=== PATIENT | male | born 1955 | race Caucasian/White ===

== ENCOUNTER → 2021-03-08 09:05 | Outpatient (BNVA) | payer MEDICARE, BC, SELFPAY | PROVIDERS: PCP Family Medicine; Visit Provider Urology | DX: Z12.5 Encounter for screening for malignant neoplasm of prostate (principal); R39.9 Unspecified symptoms and signs involving the genitourinary system; Z80.42 Family history of malignant neoplasm of prostate | CPT/HCPCS: 81003; G0103 ==

== ENCOUNTER → 2022-11-21 13:16 | Outpatient (BNVA) | payer MEDICARE, BC, SELFPAY | PROVIDERS: PCP Family Medicine; Visit Provider Otolaryngology | DX: C44.90 Unspecified malignant neoplasm of skin, unspecified (principal) | CPT/HCPCS: 99204 ==

== ENCOUNTER → 2022-11-28 11:07 | Outpatient (BNVA) | payer MEDICARE, BC, SELFPAY | PROVIDERS: PCP Family Medicine; Referring Provider Family Medicine; Visit Provider Student in an Organized Health Care Education/Training Program | DX: M17.12 Unilateral primary osteoarthritis, left knee (principal) | CPT/HCPCS: 73560; 73565; 99204 ==

== ENCOUNTER 2022-12-15 10:24 | Day surgery (SDC) | payer MEDICARE, BC, SELFPAY ==
[2022-12-14 09:21] VITALS: BMI 30.8
[2022-12-15 10:43] VITALS: BP 147/90; PULSE 64; RESP 16; TEMP 36.2; O2SAT 97
[2022-12-15] MEDS: sodium chloride 0.9% 1,000 ML 30 ML IV (11:12)
--- NOTE | 2022-12-15 13:01 | P.HPUD_ITS ---
Surgery/Procedure H&P Update DATE OF PROCEDURE: December 15, 2022 DATE H&P PERFORMED: 11/21/22 H&P UPDATE INFORMATION: I have reviewed H&P completed within last 30 days, I have examined patient prior to procedure and No changes to prior documentation CHANGES TO PREVIOUS DOCUMENTATION: No changes PREOP DIAGNOSIS: Right episcopalian skin malignancy PRIMARY INDICATION FOR PROCEDURE: Right episcopalian skin lesion PLANNED PROCEDURE: Operation Date: 12/15/22 12:00 Proposed Procedures p 97484 - excision of lesion of face R episcopalian C44.90(Right) - Ismael Hernandez MD
--- NOTE | 2022-12-15 13:01 | W.PM.OPSUD ---
Surgery/Procedure H&P Update DATE OF PROCEDURE: December 15, 2022 DATE H&P PERFORMED: 11/21/22 H&P UPDATE INFORMATION: I have reviewed H&P completed within last 30 days, I have examined patient prior to procedure and No changes to prior documentation CHANGES TO PREVIOUS DOCUMENTATION: No changes PREOP DIAGNOSIS: Right uatsdin skin malignancy PRIMARY INDICATION FOR PROCEDURE: Right uatsdin skin lesion PLANNED PROCEDURE: Operation Date: 12/15/22 12:00 Proposed Procedures p [id number] - excision of lesion of face R uatsdin C44.90(Right) - Ismael Hernandez MD
[2022-12-15] MEDS: ceFAZolin 2,000 MG in sodium chloride 0.9% (plus) 50 ML 100 MG IV (13:10)
--- NOTE | 2022-12-15 13:42 | P.ANESASSM_ITS ---
Pre-Anesthetic Assessment Height/Weight: Height 1.78 m Weight 97.522 kg Temp Pulse Resp BP Pulse Ox O2 Del Method 97.1 F L 64 16 147/90 97 Room Air 12/15/22 10:43 12/15/22 10:43 12/15/22 10:43 12/15/22 10:43 12/15/22 10:43 12/15/22 10:46 Preop Diagnosis: Right taoism skin malignancy Operation Date: 12/15/22 12:00 Proposed Procedures p [id number] - excision of lesion of face R taoism C44.90(Right) - Ismael Hernandez MD Familial anesthetic complications: none Was Beta Cy taken within 24 hours: N/A Was Clonidine taken within 24 hours: N/A Last intake: Intake Last Liquid Date 12/15/22 Last Liquid Time 06:30 Last Solid Date 12/15/22 Last Solid Time 03:00 Social No alcohol and No tobacco Exam alert, oriented x 3, clear to auscultation bilaterally and regular rate & rhythm Airway Submandibular: within normal limits Cervical ROM: within normal limits Mallampati: Class I Dentition: caps Comments: Comments: Pt. describes having teeth knocked out during intubation, I'm anterior . CV/HEM Hypertension Musc/skel Osteoarthritis/DJD Anesthetic Plan ASA status: 2 Anesthesia: Choice Medications/Allergies Home Medications Medication Instructions Recorded Confirmed Last Taken Type aspirin 81 mg tablet,delayed 81 mg PO DAILY 09/10/19 12/14/22 11/24/22 History release (Adult Low Dose Aspirin) lisinopril 40 mg tablet 40 mg PO DAILY 09/10/19 12/14/22 12/14/22 History chlorthalidone 25 mg tablet 25 mg PO DAILY 03/08/21 12/14/22 12/14/22 History Allergies Allergy/AdvReac Type Severity Reaction Status Date / Time No Known Allergies Allergy Verified 11/28/22 11:27 Current Medications Generic Name Dose Route Start Last Admin Trade Name Freq PRN Reason Stop Dose Admin Sodium Chloride 1,000 mls @ 30 mls/hr 12/15/22 10:45 12/15/22 11:12 Sodium Chloride 0.9% IV 12/16/22 10:44 30 mls/hr .Q24H JOSE Administration PFSH Anesthesia Medical History DVT (deep venous thrombosis) Family history of prostate cancer HTN (hypertension) Varicose veins of both lower extremities Surgical History S/P IVC filter S/P knee surgery S/P shoulder surgery S/P tendon repair Family History Mother Hypertension Father , at age 83 COPD (chronic obstructive pulmonary disease) Social History Smoking and tobacco status: never smoked Alcohol intake: never Marital status: Current occupational status: retired Data Anesthesia Cardiac Studies: No Data to Display
[2022-12-15] MEDS: neomycin-poly-bacitracin oint 28 gm 1 APPLIC TOPICAL (13:49)
[2022-12-15] MEDS: lidocaine-epi 2% 1.7mL Cartridge (OR Only) 5.1 ML XX (13:51)
--- NOTE | 2022-12-15 14:12 | P.OP_ITS ---
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 3 cm. Implants: No implants Specimens removed/disposition: Lesion with surrounding skin Pathology: Same Surgeon: Ismael Hernandez MD Anesthesia: General and Local Estimated blood loss: 10 mL Complications: No complications encountered Findings: Ulcerative lesion with raised edges and quiescent phase right zoroastrian skin. Lesion measuring 8 mm in diameter. Excision was 3 cm x 1.5 cm to obtain margins that were clear. Brief History: 67-year-old male patient with a right zoroastrian skin lesion that ulcerated and bled and scabbed over. Its been enlarging in size. On exam it appeared to be a basal cell carcinoma. He is being brought to the operating room at this time to undergo excision and repair. Frozen section will be utilized for margins. The procedure its risks and complications were explained in detail. Risks include bleeding infection numbness scarring swelling bruising weakness of facial nerve which could be temporary or permanent and anesthetic risks. With these things understood informed consent was granted and witnessed. Procedure: Description of procedure: The patient was placed on the operating table in the supine position. Adequate general LMA anesthesia was obtained. The patient was positioned into a semirecumbent position. The sign the site was noted. Alcohol was used to remove the signature and cleansed the skin and prep it for infiltration of local. A total of 5.1 mL of 2% Xylocaine with 1-100,000 epinephrine was used in a field block pattern. Patient was then prepped and draped in usual fashion. A timeout was accomplished identifying the patient date of plan procedure allergies fire risk and medications given. With all in agreement the procedure continued. A fusiform excision pattern was outlined with the apices superiorly and inferiorly. The incision was created with a 15 blade carrying it down to the level of the subcutaneous fat. In this plane the lesion was excised. It was marked superiorly with suture. Hemostasis was then obtained with bipolar cautery. Frozen section returned as basal cell carcinoma with margins clear. After assuring that there was no active bleeding the subcutaneous layer was closed with interrupted 4-0 chromic suture. The skin was closed with a running subcuticular 5-0 nylon. The area was cleansed. Pressure was applied for about 5 minutes. Neosporin ointment was applied. A large sterile Band-Aid was placed over the incision. Patient was then returned to anesthesia for wake-up and extubation. Patient tolerated the procedure well had an estimated blood loss of 10 mL and arrived in recovery in stable condition.
[2022-12-15 14:20] VITALS: BP 123/77; PULSE 63; RESP 18; TEMP 36.1; O2SAT 99
[2022-12-15 14:25] VITALS: BP 131/83; PULSE 66; RESP 18; O2SAT 98
[2022-12-15 14:30] VITALS: BP 123/78; PULSE 74; RESP 18; O2SAT 99
[2022-12-15 14:35] VITALS: BP 127/76; PULSE 69; RESP 16; TEMP 36.2; O2SAT 92
[2022-12-15 14:46] VITALS: BP 111/71; PULSE 74; RESP 14; TEMP 36.3; O2SAT 95
--- NOTE | 2022-12-15 15:21 | ANE.PACU2 ---
Inpatient post-anesthesia follow up: Airway intact: Yes Vital signs: Temperature 97.4 F Pulse Rate 74 Respiratory Rate 14 Blood Pressure 111/71 Pulse Oximetry 95 Oxygen Delivery Me thod Room Air Oxygen Flow Rate 6 Fraction of Inspir ed Oxygen Hydration adequate: Yes Nausea and vomiting: No Pain level: 2 Mental status: Baseline
== END 2022-12-15 15:30 | disposition home or self-care (01) ==
PROVIDERS: PCP Family Medicine; Visit Provider Otolaryngology
PROC: (CPT 11643; principal; 2022-12-15 11:50)
DX: C44.319 Basal cell carcinoma of skin of other parts of face (principal); I10 Essential (primary) hypertension; Z79.82 Long term (current) use of aspirin; Z86.718 Personal history of other venous thrombosis and embolism
CPT/HCPCS: 11643; 12052; 88304; 88331; A4216; J0690; J2250; J2405; J2704; J2710; J3010; J3490; J7030

== ENCOUNTER → 2022-12-23 11:22 | Outpatient (BNVA) | payer MEDICARE, BC, SELFPAY | PROVIDERS: PCP Family Medicine; Visit Provider Otolaryngology | DX: Z48.817 Encounter for surgical aftercare following surgery on the skin and subcutaneous tissue (principal) | CPT/HCPCS: 99024 ==

== ENCOUNTER 2022-12-24 10:51 | Outpatient (CLI) | payer MEDICARE, BC, SELFPAY ==
--- NOTE | 2022-12-24 14:30 | CT_ITS ---
WS: [id number] CT LEFT KNEE, NONCONTRAST TECHNIQUE: Noncontrast CT of the LEFT knee to include the LEFT hip and ankle. CLINICAL INFORMATION: M17.12 - Unilateral primary osteoarthritis, left knee COMPARISON: None. DLP: 861.[address] scans at [facility] use at least one of these dose optimization techniques: automated e xposure control; mA and/or kV adjustment per patient size (includes targeted exams where dose is matc hed to clinical indication); or iterative reconstruction. FINDINGS: Advanced degenerative arthritis LEFT knee worse in the medial joint compartment with pimp-om-soru art iculation. Hypertrophic patella. Small suprapatellar effusion. Soft tissue edema. Lobulated popliteal cyst measuring 5.3 x 2.8 cm. Vascular calcification. Small fat-containing inguinal hernias. Prominent prostate with calcification. Small cystocele. Partia lly visualized ileal sclerosis along the SI joints. CT/CT knee LT wo con* [id number] IMPRESSION: Images obtained for preoperative purposes.
== END 2022-12-24 10:52 | disposition home or self-care (01) ==
LOC: RAD 10:53
PROVIDERS: PCP Family Medicine; Visit Provider Student in an Organized Health Care Education/Training Program
DX: M17.12 Unilateral primary osteoarthritis, left knee (principal)
CPT/HCPCS: 73700

== ENCOUNTER 2023-01-04 07:50 | Day surgery (SDC) | payer MEDICARE, BC, SELFPAY ==
[2023-01-03 09:05] VITALS: BMI 31.5
[2023-01-03 10:18] LABS: Add Urine Microscopic? NO; Charge for UA Resulting for Rev
[2023-01-03 10:19] LABS: Basophils # 0.1 10^3/uL (0.0-0.1); Basophils % 0.8 %; Eosinophils # 0.3 10^3/uL (0.0-0.8); Eosinophils % 4.6 %; Hematocrit 47.9 % (42.0-52.0); Hemoglobin 16.1 g/dL (11.7-16.6); Lymphocytes # 1.8 10^3/uL (0.8-4.8); Mean Corpuscular HGB Conc 33.6 g/dL (30.0-36.0); Mean Corpuscular Hemoglobin 29.8 pg (28.0-34.0); Mean Corpuscular Volume 88.5 fl (80-94); Mean Platelet Volume 9.8 fL (7.4-10.4); Monocytes # 0.8 10^3/uL (0.2-0.9); Monocytes % 12.7 %; Neutrophils # 3.42 10^3/uL (1.8-7.7); Neutrophils % 53.7 %; Nucleated Red Blood Cells % 0 %; Platelet Count 157 10^3/cmm (130-400); Red Blood Count 5.41 10^6/uL (4.1-5.3); Red Cell Distribution Width 12.9 % (12.1-15.1); White Blood Count 6.4 10^3/uL (4.0-10.0)
[2023-01-03 10:23] LABS: Bilirubin Urine Neg (Negative); Blood Urine Neg (Negative); Glucose Urine UA Norm (Normal); Ketones Urine Negative (Negative); Leukocyte Esterase Urine Negative (Negative); Nitrate Urine Negative (Negative); Protein Urine Neg (Negative); Urine Appearance Clear (CLEAR); Urine Color Yellow (Yellow); Urobilinogen Urine Neg (Negative); pH Urine 6 (5-7)
--- NOTE | 2023-01-03 10:39 | P.ANESASSM_ITS ---
Pre-Anesthetic Assessment Height/Weight: Height 1.78 m Weight 99.79 kg Operation Date: 01/04/23 13:30 Proposed Procedures p Left total knee arthroplasty: 11403,M17.12(Left) - Jhony Choudhury DO Familial anesthetic complications: Difficult airway - was told he was anterior and if they'd had a flexible, it would've been easier. During this intubation attempt he experienced chipping of teeth. Social No alcohol and No tobacco Exam alert, oriented x 3, clear to auscultation bilaterally and regular rate & rhythm Airway Mallampati: Class II Dentition: caps Pulmonary Sleep Apnea Anesthetic Plan ASA status: 2 Anesthesia: Regional (specify below) Risk of > 500 ml blood loss (7ml/kg in children): Yes, adequate IV access and fluids planned Medications/Allergies Home Medications Medication Instructions Recorded Confirmed Last Taken Type aspirin 81 mg tablet,delayed 81 mg PO DAILY 09/10/19 01/03/23 11/24/22 History release (Adult Low Dose Aspirin) lisinopril 40 mg tablet 40 mg PO DAILY 09/10/19 01/03/23 12/14/22 History chlorthalidone 25 mg tablet 25 mg PO DAILY 03/08/21 01/03/23 12/14/22 History Allergies Allergy/AdvReac Type Severity Reaction Status Date / Time No Known Allergies Allergy Verified 12/23/22 11:52 [facility] Anesthesia Medical History DVT (deep venous thrombosis) Family history of prostate cancer HTN (hypertension) Varicose veins of both lower extremities Surgical History S/P IVC filter S/P knee surgery S/P shoulder surgery S/P tendon repair Family History Mother Hypertension Father , at age 83 COPD (chronic obstructive pulmonary disease) Social History Smoking and tobacco status: never smoked Alcohol intake: never Marital status: Current occupational status: retired Data Anesthesia 01/03/23 09:52 01/03/23 09:52 Short CBC 01/03/23 Range/Units 09:52 WBC 6.4 (4.0-10.0) 10^3/uL Hgb 16.1 (11.7-16.6) g/dL Hct 47.9 (42.0-52.0) % MCV 88.5 (80-94) fl Plt Count 157 (130-400) 10^3/cmm Neut % (Auto) 53.7 % Neut # (Auto) 3.42 (1.8-7.7) 10^3/uL Urine 01/03/23 Range/Units 10:00 Urine Color Yellow (Yellow) Urine Appearance Clear (CLEAR) Urine pH 6 (5-7) Ur Specific [place] 1.020 (1.005-1.030) Urine Protein Neg (Negative) Urine Glucose (UA) Norm (Normal) Urine Ketones Negative (Negative) Urine Nitrate Negative (Negative) Urine Bilirubin Neg (Negative) Ur Leukocyte Esterase Negative (Negative) Cardiac Studies: No Data to Display
[2023-01-03 10:43] LABS: Anion Gap 15.9 (5-19); Blood Urea Nitrogen 21 mg/dL (8-23); Calcium 8.9 mg/dL (8.5-10.5); Carbon Dioxide 26 mmol/L (22-29); Chloride 104 mmol/L (98-107); Creatinine Clr Calc Pharmacy 106.0984; Glomerular Filtration Rate 96.4 mL/min (90-130); Glucose 108 mg/dL (65-115); Osmolality Calculated 298 mOsm/kg (285-295); Potassium 3.9 mmol/L (3.5-5.1); Sodium 142 mmol/L (136-145)
[2023-01-04] VITALS (17 sets, daily range): BP systolic 101–145; BP diastolic 60–90; PULSE 58–92; RESP 16–19; TEMP 36.3–36.8; O2SAT 92–99
--- NOTE | 2023-01-04 08:12 | ECG_ITS ---
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 Measurements Intervals [place] Rate: 60 P: 34 UT: 228 QRS: -43 QRSD: 113 T: 16 QT: 433 QTc: 435 Interpretive Statements SINUS RHYTHM WITH FIRST DEGREE AV BLOCK LEFT AXIS DEVIATION [QRS AXIS < -30] PATTERN CONSISTENT WITH PULMONARY DISEASE MODERATE INTRAVENTRICULAR CONDUCTION DELAY [110+ ms QRS DURATION] No previous ECG available for comparison Electronically Signed On 01-04-2023 17:59:08 CDT by Ruben Hodgson M.D. [id number]
[2023-01-04] MEDS: lactated ringers 500 ML IV (08:30)
[2023-01-04] MEDS: ketorolac 30 mg/mL INJ IVP (08:31)
[2023-01-04] MEDS: acetaminophen 1,000 MG/100 ML PIGGYBACK 400 MG IV ×2 (08:31→20:37)
[2023-01-04] MEDS: sodium chloride 0.9% 1,000 ML 30 ML IV (08:53)
--- NOTE | 2023-01-04 09:20 | P.ANESUD_ITS ---
Pre-Anesthetic Update Pre-Anesthetic Assessment: Date of Surgery/Procedure: 01/04/23 Preop Belkys gnosis: Left knee degenerative joint disease Proposed Procedure: Operation Date: 01/04/23 09:30 Proposed Procedures p Left total knee arthroplasty: 73302,M17.12(Left) - Jhony Choudhury, DO Any changes to Pre-Anesthetic Assessment?: No Last Intake: Intake Last Liquid Date 01/04/23 Last Liquid Time 06:00 Last Solid Date 01/03/23 Last Solid Time 18:00 Labs Last 48hrs: Short CBC 01/03/23 Range/Units 09:52 WBC 6.4 (4.0-10.0) 10^3/ uL Hgb 16.1 (11.7-16.6) g/dL Hct 47.9 (42.0-52.0) % MCV 88.5 (80-94) fl Plt Count 157 (130-400) 10^3/c mm Neut % (Auto) 53.7 % Neut # (Auto) 3.42 (1.8-7.7) 10^3/u L BMP 01/03/23 09:52 Sodium 142 Potassium 3.9 Chloride 104 Carbon Dioxide 26 BUN 21 Creatinine 0.8 Glucose 108 Calcium 8.9 Urine 01/03/23 Range/Units 10:00 Urine Color Yellow (Yellow) Urine Appearance Clear (CLEAR) Urine pH 6 (5-7) Ur Specific Gravit y 1.020 (1.005-1.030) Urine Protein Neg (Negative) Urine Glucose (UA) Norm (Normal) Urine Ketones Negative (Negative) Urine Nitrate Negative (Negative) Urine Bilirubin Neg (Negative) Ur Leukocyte Gisselle ase Negative (Negative) Blood Bank 01/03/23 09:52 Blood Type O Positive Rho(D) Type Positive Antibody Screen Negative Vitals: Temperature 97.8 F 01/04/23 08:14 Temperature Source Temporal Artery S can 01/04/23 08:14 Pulse Rate 88 01/04/23 08:14 Respiratory Rate 18 01/04/23 08:14 Blood Pressure 131/86 01/04/23 08:14 Blood Pressure Isis n 101 01/04/23 08:14 Pulse Oximetry 95 01/04/23 08:14 Oxygen Delivery Me thod Room Air 01/04/23 08:14 Exam: Pre-Anes Outpt Exam: alert, oriented x 3, clear to auscultation bilaterally and regular rate & rhythm Cardiac Studies: No Data to Display
--- NOTE | 2023-01-04 09:21 | ANES.PROC ---
Anesthesia Procedures Procedure/Date: 01/04/23 Nerve Block ^: Nerve Block 1: Main Anesthesia: spinal anesthesia block Time Out Performed: Yes Consent: requested by attending/covering physician, from patient, from other, risks and benefits reviewed and patient agrees to proceed Nerve block location: adductor canal (R) Anesthesia monitors applied: pulse oximetry, EKG, BP cuff and oxygen Nerve block position: supine Anesthetic Used: ropivicaine 0.5% (30 ml) and with decadron (4 mg) Ultrasound used to: recognize landmarks and visualize and ID femerol nerve Nerve Stimulator Used?: No Interscalene/Femoral BLK: 4 stimuplex 21 g needle used for position and inplane approach, visualize local anesthetic spread and no vascular puncture identified Patient Tolerated Procedure: well
--- NOTE | 2023-01-04 09:44 | W.PM.OPSUD ---
Surgery/Procedure H&P Update DATE OF PROCEDURE: January 04, 2023 DATE H&P PERFORMED: 11/28/22 CHANGES TO PREVIOUS DOCUMENTATION: None. Patient's had no changes in his HPI since his office visit on 11/28/2022. He seen Dr. Castrejon his primary care provider and cleared him for surgical intervention. Once again we reviewed his history he has never had blood clots but did have very large varicose superficial veins that were removed. At that point in time his surgeon because they were so large elected to place a IVC filter this is subsequently all been removed he has no clotting history and no indications of where he cannot take any blood thinner medication. We will proceed with standard postoperative DVT prophylaxis for left total knee in this patient. Patient's preoperative labs have been reviewed and he is cleared to proceed with surgical intervention with the anesthesia team. All questions answered. Plan to proceed with a left total knee arthroplasty today. PREOP DIAGNOSIS: Left knee degenerative joint disease PRIMARY INDICATION FOR PROCEDURE: Left Knee degenerative joint disease failed conservative treatment PLANNED PROCEDURE: Operation Date: 01/04/23 09:30 Proposed Procedures p Left total knee arthroplasty: 34949,M17.12(Left) - Jhony Choudhury DO
--- NOTE | 2023-01-04 09:47 | PM.HP ---
Providers/Chief Complaint Admitting Physician: Jhony Choudhury DO Primary Care Provider: Oniel Castrejon MD Chief Complaint: M17.12 History of Present Illness Ld Alvarado is a 67 year old male presents today after failed conservative treatment of left knee degenerative joint disease. He has failed conservative treatment and having gel and corticosteroid injections in the past these have been performed roughly over 2 years ago. They only worked for several days. At this point time he has failed conservative treatment and would like to proceed with surgical intervention. He has been cleared by his primary care provider per patient. He is here today to proceed with a left total knee arthroplasty cemented, Nestor robotic assisted Denies any fevers chills chest pain shortness of breath nausea or vomiting Review of Systems General: Reports: 10 or more systems reviewed and unremarkable except in HPI and below Medications/Allergies Home Medications Medication Instructions Recorded Confirmed Last Taken Type aspirin 81 mg tablet,delayed 81 mg PO DAILY 09/10/19 01/04/23 12/21/22 History release (Adult Low Dose Aspirin) lisinopril 40 mg tablet 40 mg PO DAILY 09/10/19 01/04/23 01/02/23 History chlorthalidone 25 mg tablet 25 mg PO DAILY 03/08/21 01/04/23 01/03/23 History Allergies Allergy/AdvReac Type Severity Reaction Status Date / Time No Known Allergies Allergy Verified 01/04/23 07:59 PFSH Acute PFSH: Medical History (Updated 01/04/23 @ 09:50 by Jhony Choudhury DO) Family history of prostate cancer HTN (hypertension) Varicose veins of both lower extremities Surgical History S/P IVC filter S/P knee surgery S/P shoulder surgery S/P tendon repair Family History Mother Hypertension Father , at age 83 COPD (chronic obstructive pulmonary disease) Social History Smoking and tobacco status: never smoked Alcohol intake: never Marital status: Current occupational status: retired Vitals/I&O/Wt Last Vital Signs Temp 97.8 F 01/04/23 08:14 Pulse 88 05/17/23 08:14 Resp 18 01/04/23 08:14 BP 131/86 01/04/23 08:14 Pulse Ox 95 01/04/23 08:14 O2 Del Method Room Air 01/04/23 08:14 01/03/23 01/04/23 01/04/23 22:59 06:59 14:59 Intake Total 600 / 600 Balance 600 / 600 Weight last 48 hrs Weight 220 lb Physical Exam Narrative: Left knee examination: ? Mild boggy effusion noted to the left knee.? There is tenderness to palpation primarily over the medial compartment of the left knee. Crepitance is felt with range of motion. There is patellafemoral crepitance as well. There is a negative lachmans test and both knees are stable to varus and valgus stress testing. There is a varus alignment grossly of 10 degrees.? Patient's varus malalignment is correctable with valgus stress.? Able to plantarflex and dorsiflex ankle.? Sensation intact light touch distally. Const: COMMON NORMALS: no acute distress and average body habitus HENMT: COMMON NORMALS: normocephalic and atraumatic Resp: COMMON NORMALS: normal respiratory effort and No retractions Cardio: PERIPHERAL PULSES: Peripheral pulses 2+ throughout Data 01/03/23 09:52 01/03/23 09:52 Xray Ortho: My impression: X-rays multiple views of the bilateral knees reviewed in person interpreted by myself in the office today.? Left knee demonstrates [id number] articulation of the medial compartment with advanced tricompartmental arthritic changes with varus collapse and alignment.? Review of imaging of the right knee demonstrates medial joint space narrowing roughly 50% with mild arthritic changes noted in the patellofemoral compartment. CT scan used as preoperative planning for robotic assistance and once again demonstrate tricompartmental osteoarthritis left knee A&P Assessment and plan (1) Left knee DJD: Plan Patient is here today to proceed with surgical intervention for left total knee arthroplasty given failed conservative treatment of left knee degenerative joint disease detailed out the risk the benefits complication alternatives with surgical nonsurgical treatment options. He understands the ins and outs of the procedure. Understanding his risk for surgery he agrees to proceed with surgical intervention has been medically optimized and cleared to proceed with surgical intervention all questions answered this time. We will proceed with left total knee arthroplasty cemented?Nestor robotic assisted today. Attestations Medical Necessity Statement*: Left knee degenerative joint disease failed conservative treatment with plan for left total knee arthroplasty Coding Level of Care Code Acute Code for Chg Fwd Diagnoses Left knee DJD M17.12 Time Spent (min) 30
[2023-01-04] MEDS: ceFAZolin 2,000 MG in sodium chloride 0.9% (plus) 50 ML 100 MG IV ×2 (10:09→20:36)
[2023-01-04] MEDS: tranexamic acid 1,000 mg/10mL SDV 1000 MG XX (11:02)
[2023-01-04] MEDS: ketorolac 30 mg/mL INJ XX (11:02)
[2023-01-04] MEDS: EPINEPHrine 1 mg/mL INJ XX (11:02)
--- NOTE | 2023-01-04 12:29 | PM.OP2 ---
Brief Operative Note Date of procedure: 01/04/23 Pre-op diagnosis: Left knee degenerative joint disease Post-op diagnosis: same Procedure Done: Left total knee arthroplasty, cemented?Nestor robotic assisted Surgeon: Jhony Choudhury Estimated blood loss (mL): 50 Complications: None Post-op Plan: Patient taken to PACU in stable condition recovering well receive appropriate discharge instruction as well as pain medication postoperatively. Will be admitted to the floor postoperatively internal medicine will be consulted and on board and appreciate medical management and assistance patient received appropriate postoperative antibiotics, TXA, DVT prophylaxis, PT/OT, weightbearing as tolerated left lower extremity and encourage knee range of motion. Plan will be for home discharge tomorrow. Patient understands agrees with current plan. All questions answered. Condition: stable Disposition: floor Coding Level of Care Code Acute Code for Leno Salas
--- NOTE | 2023-01-04 12:29 | PM.PACU ---
PACU note Narrative: Patient taken to PACU in stable condition recovering well spinal anesthesia still on affect unable to assess motor or sensory. Distal pulses are palpable to the left lower extremity toes warm well perfused. Compartments are soft and compressible. Dressing on in place clean dry and intact. Exam: awake Disposition: admitted
--- NOTE | 2023-01-04 12:30 | P.OP_ITS ---
Operative Report Date of procedure: January 04, 2023 Pre-op diagnosis: Preop Diagnosis Left knee degenerative joint disease Procedure: Post-op diagnosis: Same Procedure done: Left total knee arthroplasty, cemented?robotic assisted Nestor Implants: Meridian triathlon size 6 femur?CR cemented left Meridian triathlon size 6 tibia universal baseplate cemented Junito triathlon asymmetric patella size 35 mm Meridian triathlon polyethylene 10 mm Surgeon: Jhony Choudhury DO Estimated blood loss: 50 mL Tourniquet 71minutes IV fluids: 1000 mL Urine output: No Munoz Complications: None Condition: stable Disposition: floor Brief History: Ld is a 67yoM with chronic left knee degenerative joint disease.? Patient's failed conservative treatment has wnun-to-hidi arthritis.patient received gel and corticosteroid injections which have not helped him in the past. This is been over 2 years ago. He has been worked up in the outpatient setting in the orthopedic office at this point time through shared decision making given his oqft-en-ctsz arthritis as well as failed conservative treatment he like to proceed with a left total knee arthroplasty. Through shared decision making elected to proceed with surgical intervention for left total knee arthroplasty.? We talked about continued conservative treatment and surgical intervention as far as the risk benefits complications alternatives surgical and nonsurgical treatment options.? At this point time understanding his risks with surgery he agrees to proceed with surgical intervention.? Once again his risk with surgery include but are not limited to make it better make it worse blood clot, heart attack, stroke, on the table, infection, injury to nerves or vessels, persistent pain, arthrofibrosis, implant failure.? Understanding these risks he agrees to proceed with surgical intervention consent was obtained in the office.? All questions answered. Procedure: Patient was seen and evaluated in the preoperative holding area.? Consent was reviewed and signed with patient with plan for left total knee arthroplasty.? All questions answered.? Correct extremity marked.? Patient seen and evaluated by the anesthesia department and once cleared for surgery was taken back to the operative suite.? Patient was placed into a supine position on the OR table.? All bony prominences were well-padded.? Patient was appropriately secured to the bed.? Patient underwent anesthesia per the anesthesia department.? Patient received spinal anesthesia and no Munoz catheter was applied as patient had issues with Munoz catheter on last hospitalization.? A nonsterile tourniquet was applied to the left thigh.? At this point in time a final timeout performed.? Patient received appropriate preoperative antibiotics and TXA. Next the left lower extremity was then prepped and draped in standard orthopedic fashion.?Esmarch tourniquet was used exsanguinate the left lower extremity.? Tourniquet was insufflated to 250 mmHg. A standard anterior incision was made over midline of the knee.? Sharp scalpel excision through skin and subcutaneous tissue full-thickness skin flaps were made.? Fascia was elevated off of the extensor retinaculum was stable with medial parapatellar arthrotomy was then made.? The performed standard sequential releases with a medial release was patient had a varus deformity.? Next the the patella was then stuffed and the knee was then flexed.? Daysi was placed superiorly around the anterior aspect of the femur this was freed of synovium and I subsequently then placed by 2 femur pins to establish my femur arrays for the Nestor robot.? These were then placed bicortically and? femur array was then appropriately secured with appropriate visualization.? Next attention was turned towards the tibial rays.? These were then drilled sequentially bicortically in parallel fashion and intraincisional.? I then placed my guide as well as my tibial array on in place.? This was appropriately secured and had excellent visualization with the Nestor robot.? Next the tibial checkpoint as well as femur checkpoint were then placed.? At this point time I then subsequently established my head center as well as my medial lateral malleoli as well as my checkpoints.? Next utilizing standard Nestor technology I then mapped out the appropriate points and confirmation points around the femur as well as the tibia in standard fashion.? Once this was then done I then removed all osteophytes in preparation for dynamic testing.? All osteophytes were removed as well as I removed the ACL and the PCL was excised due to its significant tearing and degeneration noted.? At this point time the knee was brought into full extension and we performed our standard evaluation of our gap balancing stressing his ligaments and extension as well as flexion appropriate adjustments were made to have appropriate gap balancing in both flexion and extension.? This plan for final counts.? We get a preoperative plan evaluating our implants which was a size 6 femur and a size 6 tibia.? Next we brought in the Nestor robot and sequentially made our femur cuts.? All excess bony cuts were then removed.? Finally we made our tibial cut.? Once this was done a standard PCL retractor was then placed into this position I excised the medial and lateral meniscus.? The tibial cut was then subsequently removed all excess bony debris was removed.? I then utilized a lamina inpatient pharmacist and remove the posterior osteophytes.? At this point time sized the tibia and confirmed this was a size 6.? I utilized our blunt probe to establish rotation of tibial implant.? Once this was done I then placed my tibia size 6 trial in appropriate position and then subsequently placed tibial pins to hold this into place placed a size 10 mm poly as well as a size 6 femur which was appropriately impacted in place knee was then subsequently brought into extension. Trials were then assessed, this was stable with varus valgus stress in extension as well as flexion.? Patient had symmetric translation in flexion with symmetric gaps.? Once this was done I had excellent balance gaps in flexion and extension with varus and valgus stresses.? At this point I was satisfied with these implants these were then verified and opened on the back table size 6 tibia, size 6 femur,? size 10 mm polythickness.? We did confirm appropriate gap balancing and stresses as well as alignment utilizing? [employer] and were satisfied with this plan.? ?At this point time with my trials in place I then towel clip the patella everte d this made appropriate measurements subsequently utilizing freehand technique performed by patellar resurfacing this was confirmed to be appropriate resection and subsequently sized to be a 35 mm asymmetric.? My drill peg guides were then clamped and appropriate position and appropriate position in the patella for appropriate tracking and parallel with the joint.? Pegs were drilled trial implant was placed and the knee was then subsequently ranged and found to have excellent patellar tracking.? Femur pegs were then drilled.? Satisfied with our tibial placement rotation I then utilized the keel punch and prepped the tibia.? At this point time all of our trial implants were removed.? All checkpoints as well as guidepins and arrays were removed and appropriate counts made.? The wound bed? was thoroughly irrigated and dried and prepped for cementation.? Cement was mixed on the back table.? Once cement was ready this was then covered onto the tibia and the tibial baseplate was then impacted and all excess cement was removed.? Next the polyethylene was then impacted into place on the tibial baseplate.? Next cement was placed onto the femur as well as under the femur implants and impacted in to place and all excess cement was extruded.? Knee was taken into full extension? to clear all excess cement was removed.? Warm saline was placed over the joint.? I then towel clip patella and dried for cementation. cemented the patella into place.? This was all clamped and the cement was allowed to cure.? Thorough irrigation performed with pulse lavage.? I then placed my periarticular injection while the cement was curing.? Once cured the knee was taken through range of motion and had excellent stability and gaps were balanced in flexion and extension.? Tourniquet was then deflated.? Once tourniquet was deflated hemostasis satisfactory with electrocautery.? Next I then subsequently closed the capsule with Ethibond suture as well as a running strata fix suture.? Knee was then taken through range of motion 30 times.? Next the skin was then closed in layered fashion of running stratifix sutures of deep ans subcutenous tissue and skin. He was closed in flexion and Prineo glue was then placed over the incision this allowed to cure.? Incision was covered with ABDs soft roll and David wrap.? Patient was then awakened from anesthesia and taken to PACU in stable condition. Disposition: Patient taken to PACU in stable condition will be admitted to the floor for pain control PT/OT weight-bear as tolerated left lower extremity dressing changes as needed, DVT prophylaxis.?Pain control. Patient will receive appropriate postoperative antibiotics. patient will be seen today by the internal medicine team for medical management.? Patient will follow up with the office in 2 weeks.? Patient understands agrees with current plan.? All questions answered.
--- NOTE | 2023-01-04 13:02 | XR_ITS ---
WS: [id number] Left knee, AP and lateral views, 01/04/2023 Clinical Data: left TKA postop Comparison: Knees, 11/28/2022 Findings: There is a left knee arthroplasty. No periprosthetic fractures or loosening is seen. The soft tissues are normal. XR/XR knee LT 1-2V 82631 Impression: Left knee arthroplasty
--- NOTE | 2023-01-04 14:30 | ANE.PACU2 ---
Inpatient post-anesthesia follow up: Airway intact: Yes Vital signs: Temperature 98.1 F Pulse Rate 67 Respiratory Rate 18 Blood Pressure 113/82 Pulse Oximetry 92 Oxygen Delivery Me thod Room Air Oxygen Flow Rate 8 Fraction of Inspir ed Oxygen Hydration adequate: No Nausea and vomiting: Yes Pain level: 1 Mental status: Baseline
--- NOTE | 2023-01-04 15:39 | PM.CONSULT ---
Providers/Reason For Consult Consulting Physician/Specialty*: Left knee arthroplasty hospitalist service Reason for Consult*: Postoperative management Attending Physician: Jhony Choudhury DO Primary Care Provider: Oniel Castrejon MD History of Present Illness History of Present Illness Ld Alvarado is a 67 year old male who failed conservative therapy for left knee degenerative joint disease, status post left knee total arthroplasty by Dr. Choudhury Hospital service-requested for postoperative management, patient received spinal anesthesia, no significant perioperative complications reported Review of Systems Const: Denies: fever(s) Eyes: Denies: change in vision ENMT: Denies: throat pain Card: Denies: chest pain Resp: Denies: dyspnea GI: Denies: abdominal pain : Denies: flank pain Medications/Allergies Home Medications Medication Instructions Recorded Confirmed Last Taken Type aspirin 81 mg tablet,delayed 81 mg PO DAILY 09/10/19 01/04/23 12/21/22 History release (Adult Low Dose Aspirin) lisinopril 40 mg tablet 40 mg PO DAILY 09/10/19 01/04/23 01/02/23 History chlorthalidone 25 mg tablet 25 mg PO DAILY 03/08/21 01/04/23 01/03/23 History aspirin 325 mg tablet 325 mg PO BID Blood clot 01/05/23 Unknown Rx prevention 14 days #28 tabs calcium carbonate 600 mg-vitamin 1 ea PO BID 30 days #60 tabs 01/05/23 Unknown Rx D3 10 mcg (400 unit) tablet docusate sodium 100 mg capsule 100 mg PO DAILY PRN constipation 01/05/23 Unknown Rx (Colace) 10 days #10 caps ondansetron 4 mg disintegrating 4 mg PO DAILY 5 days #5 tabs 01/05/23 Unknown Rx tablet oxycodone-acetaminophen 5 mg-325 1 tab PO Q6H PRN pain 7 days #28 01/05/23 Unknown Rx mg tablet (Percocet) tabs Allergies Allergy/AdvReac Type Severity Reaction Status Date / Time No Known Allergies Allergy Verified 01/04/23 07:59 Current Medications Generic Name Dose Route Start Last Admin Trade Name Freq PRN Reason Stop Dose Admin Sodium Chloride 1,000 mls @ 30 mls/hr 01/04/23 08:15 01/04/23 08:53 Sodium Chloride 0.9% IV 01/05/23 08:14 30 mls/hr .Q24H JOSE Administration PFSH Acute PFSH: Medical History Family history of prostate cancer HTN (hypertension) Varicose veins of both lower extremities Surgical History S/P IVC filter S/P knee surgery S/P shoulder surgery S/P tendon repair Family History Mother Hypertension Father , at age 83 COPD (chronic obstructive pulmonary disease) Social History Smoking and tobacco status: never smoked Alcohol intake: never Marital status: Current occupational status: retired Vitals/I&O/Wt Last Vital Signs Temp 98.1 F 01/04/23 14:40 Pulse 73 01/04/23 14:40 Resp 18 01/04/23 14:40 BP 114/69 01/04/23 14:40 Pulse Ox 94 01/04/23 14:40 O2 Del Method Room Air 01/04/23 14:40 O2 Flow Rate 8 01/04/23 12:50 01/04/23 01/04/23 01/04/23 06:59 14:59 22:59 Intake Total 1810 / 1810 Output Total 50 / 50 Balance 1760 / 1760 Weight last 48 hrs Weight 99.79 kg Physical Exam Narrative: Awake and alert Hemodynamic stable Currently on room air Knee covered in dressing Dressing was not removed No active complaints S1, S2 Nonfocal neuro exam GCS 15 Abdomen soft Doing well on room air Data 01/05/23 03:39 01/05/23 03:39 A&P Assessment and plan (1) Postoperative visit: (2) Left knee DJD: (3) Skin neoplasm malignant: (4) History of arthroplasty of left knee: Plan Postop day 0 Left total knee arthroplasty Patient has history of hypertension For DVT prophylaxis he will get aspirin versus Eliquis Orthopedics to decide PT has been requested Incentive spirometer Monitor for any postoperative complications DuoNeb every 4 as needed I will continue his lisinopril and chlorthalidone Add senna S Plan for discharge as per orthopedic by tomorrow Consult Attestations Medical Necessity Statement: As per orthopedics Diagnoses Postoperative visit Z48.89 Left knee DJD M17.12 Skin neoplasm malignant C44.90 History of arthroplasty of left knee Z96.652
--- NOTE | 2023-01-04 16:39 | SUR.PHASEI ---
1639-Patient is in extended care and has not urinated yet. Bladder scan was completed in pre-op area at bedside. Resulted in 387ml
[2023-01-04] MEDS: lactated ringers 1,000 ML 100 ML IV (20:34)
[2023-01-04] MEDS: chlorhexidine gluconate 0.12% UDC 15 mL 30 ML MUCOUS MEM ×2 (20:37→21:30)
[2023-01-04] MEDS: docusate sodium 100 mg Capsule PO (20:37)
[2023-01-04] MEDS: mupirocin oint 22 gm 1 APPLIC NASAL (20:48)
[2023-01-05 03:22] VITALS: BP 132/71; PULSE 64; RESP 18; TEMP 36.4; O2SAT 95
[2023-01-05] MEDS: acetaminophen 1,000 MG/100 ML PIGGYBACK 400 MG IV ×2 (03:30→12:15)
[2023-01-05] MEDS: ceFAZolin 2,000 MG in sodium chloride 0.9% (plus) 50 ML 100 MG IV ×2 (03:30→12:16)
[2023-01-05 04:12] LABS: Basophils % 0.2 %; Eosinophils # 0.1 10^3/uL (0.0-0.8); Eosinophils % 0.4 %; Hematocrit 42.5 % (42.0-52.0); Hemoglobin 14.1 g/dL (11.7-16.6); Lymphocytes # 1.1 10^3/uL (0.8-4.8); Lymphocytes % 9.1 %; Mean Corpuscular HGB Conc 33.2 g/dL (30.0-36.0); Mean Corpuscular Hemoglobin 29.6 pg (28.0-34.0); Mean Corpuscular Volume 89.1 fl (80-94); Mean Platelet Volume 9.9 fL (7.4-10.4); Monocytes # 1.1 10^3/uL (0.2-0.9); Monocytes % 8.8 %; Neutrophils # 9.99 10^3/uL (1.8-7.7); Neutrophils % 80.9 %; Nucleated Red Blood Cells % 0 %; Platelet Count 148 10^3/cmm (130-400); Red Blood Count 4.77 10^6/uL (4.1-5.3); Red Cell Distribution Width 12.5 % (12.1-15.1); White Blood Count 12.4 10^3/uL (4.0-10.0)
[2023-01-05 04:43] LABS: Anion Gap 14.8 (5-19); Blood Urea Nitrogen 23 mg/dL (8-23); Calcium 8.5 mg/dL (8.5-10.5); Carbon Dioxide 23 mmol/L (22-29); Chloride 105 mmol/L (98-107); Glomerular Filtration Rate 84.2 mL/min (90-130); Glucose 131 mg/dL (65-115); Osmolality Calculated 293 mOsm/kg (285-295); Potassium 3.8 mmol/L (3.5-5.1); Sodium 139 mmol/L (136-145)
[2023-01-05 07:25] VITALS: BP 144/88; PULSE 64; RESP 16; TEMP 36.4; O2SAT 98
[2023-01-05 07:42] VITALS: PULSE 64; RESP 16; O2SAT 98
[2023-01-05] MEDS: calcium carb-vit d 600mg/400unit 1 Tablet 1 EACH PO (08:21)
[2023-01-05] MEDS: aspirin 325 mg EC Tablet PO ×2 (08:21→08:25)
[2023-01-05] MEDS: docusate sodium 100 mg Capsule PO (08:21)
[2023-01-05] MEDS: sennosides-docusate Tablet 1 TAB PO (08:21)
[2023-01-05] MEDS: chlorhexidine gluconate 0.12% UDC 15 mL 30 ML MUCOUS MEM ×2 (08:22→13:35)
[2023-01-05] MEDS: iron polysaccharide complex 150 mg Capsule PO (08:22)
[2023-01-05] MEDS: lisinopril 20 mg Tablet PO (08:22)
[2023-01-05] MEDS: multivitamin therapeutic Tablet 1 TAB PO (08:22)
[2023-01-05] MEDS: chlorthalidone 25 mg Tablet PO (08:22)
[2023-01-05] MEDS: mupirocin oint 22 gm 1 APPLIC NASAL (10:48)
--- NOTE | 2023-01-05 10:57 | PC.NURSE ---
FOLLOW UP APPOINTMENT WITH DR POWERS SCHEDULE FOR JANUARY [address] POWERS BEING ON VACATION.
[2023-01-05 11:16] VITALS: BP 134/90; PULSE 67; RESP 16; TEMP 36.5; O2SAT 97
--- NOTE | 2023-01-05 13:39 | P.DS_ITS ---
Discharge Providers Date of Admission: 01/04/2023 Date of Discharge: January 05, 2023 Attending Provider at Admission: Jhony Choudhury DO Attending Provider at Discharge: Jhony Choudhury DO Consults: Dr. Kendall?hospitalist internal medicine Primary Care Provider: Oniel Castrejon MD Diagnoses at Discharge Discharge Diagnosis (1) Postoperative visit: Status: Acute (2) Left knee DJD: Status: Resolved (3) Skin neoplasm malignant: Status: Acute (4) History of arthroplasty of left knee: Status: Acute Reason for Visit Reason for Visit: M17.12 Brief History: Left knee degenerative joint disease failed conservative treatment with plan for left total knee arthroplasty?Nestor robotic assisted Hospital Course Hospital Course Patient presented to the preoperative holding area with plan for left total knee arthroplasty after patient has been worked up in the outpatient setting for failed conservative treatment of left knee degenerative joint disease.? Once cleared by anesthesia for surgery patient subsequently was taken back to the o perative suite underwent? anesthesia per anesthesia department and then subsequently underwent a left total knee arthroplasty.? Procedure was performed without any complications patient was taken to PACU in stable condition patient? recovered well in PACU and then was admitted to the floor postoperatively internal medicine was consulted and on board for medical management and assistance with care.? Patient received appropriate PT/OT, postoperative antibiotics, postoperative TXA, pain control, postoperative DVT prophylaxis.? Elevation and ice.? Patient encouraged for knee range of motion allowed weightbearing as tolerated to the left lower extremity.? Dressing was changed as needed, labs were monitored daily.?? Patient recovered well postoperatively and worked well and progressed well with therapy.? It was determined on postoperative day 1 the patient was stable for discharge from an orthopedic standpoint and medicine.? Patient was comfortable with discharge and plan was discharged home.? Patient received appropriate discharge instructions as well as pain medication and DVT prophylaxis postoperatively.? Given appropriate instructions for? dressing management.? Patient will follow-up with Dr. Choudhury/orthopedics in the office in 2 weeks.? All questions answered.? Understand if there is any issues questions or concerns and contact the office. Physical Exam Narrative: Left lower extremity: Examination left lower extremity dressings on in place clean dry and intact patient is able to tolerate straight leg raise and knee range of motion roughly 0 to 80 degrees. Patient's had return of sensation intact to light touch distally spinal anesthesia is worn off he is able to wiggle toes plantarflex and dorsiflex ankle. Toes warm well-perfused brisk capillary refill less than 2 seconds. Patient distal pulses are palpable. Discharge Data Studies Completed and Pending Completed Studies During Hospitalization Category Date Time Status XR knee LT 1-2V 09334 Routine Exams 01/04/23 13:02 Completed Pending at discharge Category Date Time Status Basic Metabolic Panel AM LABS Lab 01/06/23 04:00 Ordered Basic Metabolic Panel AM LABS Lab 01/07/23 04:00 Ordered Complete Blood Count w/Auto AM LABS Lab 01/06/23 04:00 Ordered Complete Blood Count w/Auto AM LABS Lab 01/07/23 04:00 Ordered Radiology Impressions Knee X-Ray 01/04/23 13:02 Impression: Left knee arthroplasty Laboratory Results WBC 12.4 10^3/uL (4.0-10.0) H 01/05/23 03:39 RBC 4.77 10^6/uL (4.1-5.3) 01/05/23 03:39 Hgb 14.1 g/dL (11.7-16.6) 01/05/23 03:39 Hct 42.5 % (42.0-52.0) 01/05/23 03:39 MCV 89.1 fl (80-94) 01/05/23 03:39 MCH 29.6 pg (28.0-34.0) 01/05/23 03:39 MCHC 33.2 g/dL (30.0-36.0) 01/05/23 03:39 RDW 12.5 % (12.1-15.1) 01/05/23 03:39 Plt Count 148 10^3/cmm (130-400) 01/05/23 03:39 MPV 9.9 fL (7.4-10.4) 01/05/23 03:39 Neut % (Auto) 80.9 % 01/05/23 03:39 Lymph % (Auto) 9.1 % 01/05/23 03:39 Crosby % (Auto) 8.8 % 01/05/23 03:39 Eos % (Auto) 0.4 % 01/05/23 03:39 Baso % (Auto) 0.2 % 01/05/23 03:39 Neut # (Auto) 9.99 10^3/uL (1.8-7.7) H 01/05/23 03:39 Lymph # (Auto) 1.1 10^3/uL (0.8-4.8) 01/05/23 03:39 Crosby # (Auto) 1.1 10^3/uL (0.2-0.9) H 01/05/23 03:39 Eos # (Auto) 0.1 10^3/uL (0.0-0.8) 01/05/23 03:39 Baso # (Auto) 0.0 10^3/uL (0.0-0.1) 01/05/23 03:39 Nucleated RBC % (auto) 0 % 01/05/23 03:39 Nucleated RBCs # 0.0 /100WBC 01/05/23 03:39 Sodium 139 mmol/L (136-145) 01/05/23 03:39 Potassium 3.8 mmol/L (3.5-5.1) 01/05/23 03:39 Chloride 105 mmol/L (98-107) 01/05/23 03:39 Carbon Dioxide 23 mmol/L (22-29) 01/05/23 03:39 Anion Gap 14.8 (5-19) 01/05/23 03:39 BUN 23 mg/dL (8-23) 01/05/23 03:39 Creatinine 0.9 mg/dL (0.7-1.2) 01/05/23 03:39 GFR Calculation 84.2 mL/min (90-130) L 01/05/23 03:39 Glucose 131 mg/dL (65-115) H 01/05/23 03:39 Calculated Osmolality 293 mOsm/kg (285-295) 01/05/23 03:39 Calcium 8.5 mg/dL (8.5-10.5) 01/05/23 03:39 Urine Color Yellow (Yellow) 01/03/23 10:00 Urine Appearance Clear (CLEAR) 01/03/23 10:00 Urine pH 6 (5-7) 01/03/23 10:00 Ur Specific [place] 1.020 (1.005-1.030) 01/03/23 10:00 Urine Protein Neg (Negative) 01/03/23 10:00 Urine Glucose (UA) Norm (Normal) 01/03/23 10:00 Urine Ketones Negative (Negative) 01/03/23 10:00 Urine Blood Neg (Negative) 01/03/23 10:00 Urine Nitrate Negative (Negative) 01/03/23 10:00 Urine Bilirubin Neg (Negative) 01/03/23 10:00 Urine Urobilinogen Neg mg/dL (Negative) 01/03/23 10:00 Ur Leukocyte Esterase Negative (Negative) 01/03/23 10:00 Blood Type O Positive 01/03/23 09:52 Rho(D) Type Positive 01/03/23 09:52 Antibody Screen Negative 01/03/23 09:52 Procedures Performed Left total knee arthroplasty, cemented?Nestor robotic assisted Vitals Last Vital Signs Temp 97.7 F 01/05/23 11:16 Pulse 67 01/05/23 11:16 Resp 16 01/05/23 11:16 BP 134/90 01/05/23 11:16 Pulse Ox 97 01/05/23 11:16 O2 Del Method Room Air 01/05/23 11:16 O2 Flow Rate 8 01/04/23 12:50 Discharge Plan Discharge Patient Disposition: Home Condition: Stable Prescriptions: New aspirin 325 mg tablet 325 mg PO BID 14 Days Qty: 28 0RF Percocet 5-325 mg tablet 1 tab PO Q6H PRN (Reason: pain) 7 Days Qty: 28 0RF Colace 100 mg capsule 100 mg PO DAILY PRN (Reason: constipation) 10 Days Qty: 10 0RF ondansetron 4 mg tablet,disintegrating 4 mg PO DAILY 5 Days Qty: 5 0RF calcium carbonate-vitamin D3 600 mg-10 mcg (400 unit) Tablet 1 ea PO BID 30 Days Qty: 60 0RF Continued lisinopril 40 mg tablet 40 mg PO DAILY chlorthalidone 25 mg tablet 25 mg PO DAILY Rx Instructions: 1/2 tablet daily Held aspirin [Adult Low Dose Aspirin] 81 mg tablet,delayed release (DR/EC) 81 mg PO DAILY Hold Instructions: Resume on 01/19/23. Hold for 2 weeks while taking full dose aspirin twice daily Discharge Orders: Discharge Order (Routine); Ordered 01/05/23 Ordered By: Angela Kendall Other Ambulatory Orders: DME: Walker (Order) Location: None Selected Ordered By: Jhony Choudhury Physical Therapy Eval and Treat Outpatient (Order) Timeframe: 3 Weeks Facility: [facility] - Location: Physical Therapy Ordered By: Jhony Choudhury Referrals: Rafat Ramachandran FNP [Physician Agriculture Research Director] - 01/19/23 11:15 am Oniel Castrejon MD [Primary Care Provider] - 01/19/23 12:40 pm Discharge Diet: Advance as tolerated Discharge Activity: Increase activity as tolerated Patient Instructions: Oxycodone/Acetaminophen (By mouth), Aspirin (By mouth), Laxative, Stool Softeners (By mouth), Ondansetron (By mouth), Knee Replacement (GEN) Activity Restrictions/Additional Instructions: Orthopedic discharge instructions: Encourage weightbearing as tolerated to the Left lower extremity: Encourage knee range of motion Ice and elevate as needed for pain and swelling Keep David bandage on in place for 72 hours after surgery May remove this at this time leave bandage on over the front part of the knee. Leave this on for total of 7 days after 7 days may remove this and then okay to shower and rinse incision with warm soapy water pat dry and redress with a dry dressing be sure to leave the glued mesh dressing on the incision directly. This is waterproof and can tolerate showers. No baths or soaks Take pain medication as prescribed Take antinausea medication as needed Supplement with Citracal vitamin D for bone health and healing Take aspirin as prescribed for blood clot prevention Followup in the orthopedic office in 2 weeks for incision check Contact the office for any questions or concerns Discharge Attestations Time Spent in Discharge Care*: greater than 30 min Quality Metrics Clinical Quality Measures [ No reported AMI, CVA or VTE this stay] Coding Level of Care Code Acute Code for Chg Fwd Diagnoses Postoperative visit Z48.89 Left knee DJD M17.12 Skin neoplasm malignant C44.90 History of arthroplasty of left knee Z96.652 Time Spent (min) 35
[2023-01-05 14:29] VITALS: BP 134/90; PULSE 67; RESP 16; TEMP 36.5; O2SAT 97
--- NOTE | 2023-01-05 14:34 | PC.NURSE ---
Discussed discharge with patient and spouse. Went over follow up appointments, new medications and hold medications. Discussed activity with patient as well.
== END 2023-01-05 14:29 | disposition home or self-care (01) ==
LOC: OR 07:51 → MEDSURG 23:21
PROVIDERS: PCP Family Medicine; Visit Provider Student in an Organized Health Care Education/Training Program
PROC: (CPT 27447; principal; 2023-01-04 09:30)
DX: M17.12 Unilateral primary osteoarthritis, left knee (principal); Z79.82 Long term (current) use of aspirin; I44.0 Atrioventricular block, first degree; I10 Essential (primary) hypertension
CPT/HCPCS: 20985; 27447; 36415; 73560; 80048; 81003; 85025; 86850; 86900; 93005; 97110; 97116; 97161; 97165; C1776; J0131; J0171; J0690; J1100; J1885; J2704; J2795; J7030; J7120

== ENCOUNTER 2023-01-10 11:54 | Outpatient (RCR) | payer MEDICARE, BC, SELFPAY | END 2023-01-18 23:59 | disposition home or self-care (01) | LOC: SPT 11:54 | PROVIDERS: PCP Family Medicine; Visit Provider Student in an Organized Health Care Education/Training Program | DX: Z47.1 Aftercare following joint replacement surgery (principal); Z96.652 Presence of left artificial knee joint | CPT/HCPCS: 97110; 97161 ==

== ENCOUNTER 2023-01-19 06:00 | Outpatient (RCR) | payer MEDICARE, BC, SELFPAY | END 2023-02-17 23:59 | disposition home or self-care (01) | LOC: SPT 06:00 | PROVIDERS: PCP Family Medicine; Visit Provider Student in an Organized Health Care Education/Training Program | DX: Z47.1 Aftercare following joint replacement surgery (principal); Z96.652 Presence of left artificial knee joint | CPT/HCPCS: 97110; 99024 ==

== ENCOUNTER → 2023-01-19 11:23 | Outpatient (BNVA) | payer MEDICARE, BC, SELFPAY | PROVIDERS: PCP Family Medicine; Visit Provider Nurse Practitioner Family | DX: Z96.652 Presence of left artificial knee joint (principal); Z48.89 Encounter for other specified surgical aftercare | CPT/HCPCS: 73560; 73565 ==

== ENCOUNTER 2023-02-18 06:00 | Outpatient (RCR) | payer MEDICARE, BC, SELFPAY | END 2023-02-24 23:59 | disposition home or self-care (01) | LOC: SPT 06:00 | PROVIDERS: PCP Family Medicine; Visit Provider Student in an Organized Health Care Education/Training Program | DX: Z47.1 Aftercare following joint replacement surgery (principal); Z96.652 Presence of left artificial knee joint | CPT/HCPCS: 97110 ==

== ENCOUNTER → 2023-02-23 10:10 | Outpatient (BNVA) | payer MEDICARE, BC, SELFPAY | PROVIDERS: PCP Family Medicine; Visit Provider Student in an Organized Health Care Education/Training Program | DX: Z96.652 Presence of left artificial knee joint (principal); Z48.89 Encounter for other specified surgical aftercare | CPT/HCPCS: 73560; 73565; 99024 ==

== ENCOUNTER → 2023-06-30 10:00 | Outpatient (BNVA) | payer MEDICARE, BC, SELFPAY | PROVIDERS: PCP Family Medicine; Visit Provider Student in an Organized Health Care Education/Training Program | DX: Z96.652 Presence of left artificial knee joint (principal); Z48.89 Encounter for other specified surgical aftercare; Z47.1 Aftercare following joint replacement surgery | CPT/HCPCS: 73560; 73565; 99213 ==

== ENCOUNTER → 2024-01-09 13:06 | Outpatient (BNVA) | payer MEDICARE, BC, SELFPAY | PROVIDERS: PCP Family Medicine; Visit Provider Physician Assistant | DX: Z96.652 Presence of left artificial knee joint (principal) | CPT/HCPCS: 73560; 73565; 99213 ==

== ENCOUNTER → 2024-04-18 08:21 | Outpatient (BNVA) | payer MEDICARE, BC, SELFPAY | PROVIDERS: PCP Family Medicine; Visit Provider Podiatrist Foot & Ankle Surgery | DX: L60.0 Ingrowing nail (principal) | CPT/HCPCS: 11750; 99203 ==